=== PATIENT | female | born 1950 | race Caucasian/White ===

== ENCOUNTER 2018-07-19 15:58 | Emergency (ER) | payer MEDICARE, OTHER ==
[~2018-07-19] VITALS: Ht 170.2 cm; Wt 81.7 kg
[~2018-07-19 15:58] MED LIST: HYDACE5 PO; LEVSOD125 PO; OXYACE5T PO; PRAMIPEXOLE D0.25 MG PO; Prozac20 MG PO; SULTRIDS PO; VITB100
[2018-07-19] MEDS ORDERED: Cleocin HCl150 MG PO (18:49)
== END 2018-07-19 19:10 | disposition home or self-care (01) ==
LOC: ER 15:58
DX: S06.9X1A Unspecified intracranial injury with loss of consciousness of 30 minutes or less, initial encounter (principal); S01.01XA Laceration without foreign body of scalp, initial encounter; Z91.09 Other allergy status, other than to drugs and biological substances; Z88.0 Allergy status to penicillin; Z91.048 Other nonmedicinal substance allergy status; Z88.5 Allergy status to narcotic agent; Z88.1 Allergy status to other antibiotic agents; Z79.899 Other long term (current) drug therapy; W22.8XXA Striking against or struck by other objects, initial encounter
CPT/HCPCS: 12004; 70450; 99283-25

== ENCOUNTER → 2018-12-05 | Outpatient (CLI) | payer MEDICARE, OTHER ==
[~2018-12-05] MED LIST changes: +Amlodipine Bes2.5 MG PO; +Cleocin HCl150 MG PO; +ELIQUIS5 MG PO; +FURO40 PO; +SPIR25 PO
== END | disposition home or self-care (01) ==
LOC: LAB SHORT 14:45 → LAB 14:45
DX: R10.13 Epigastric pain (principal)
CPT/HCPCS: 87338

== ENCOUNTER 2019-01-01 19:48 | Inpatient (IN) | payer MEDICARE, OTHER ==
[~2019-01-01] VITALS: Ht 170.2 cm; Wt 85.7 kg
[~2019-01-01 19:48] MED LIST changes: -Amlodipine Bes2.5 MG PO; -ELIQUIS5 MG PO; -FURO40 PO; -SPIR25 PO
[2019-01-01 20:31] LABS: BASOPHILS ABSOLUTE AUTO 0.04 K/mm3 (0.00-0.23); BASOPHILS PERCENT AUTO 0 % (0-2); EOSINOPHILS ABSOLUTE AUTO 0.05 K/mm3 (0.00-0.68); EOSINOPHILS PERCENT AUTO 0 % (0-6); Hematocrit 41.8 % (33.0-51.0); Hemoglobin 13.9 g/dL (11.5-16.0); IMMATURE GRAN ABSOLUTE AUTO 0.06 K/mm3 (0.00-0.10); IMMATURE GRAN PERCENT AUTO 0 % (0-1); LYMPHOCYTES ABSOLUTE AUTO 1.05 K/mm3 (0.84-5.20); LYMPHOCYTES PERCENT AUTO 7 % (21-46); MONOCYTES PERCENT AUTO 7 % (4-13); Mean Corpuscular HGB 30.5 pg (26.0-34.0); Mean Corpuscular HGB Conc 33.3 g/dL (31.5-36.5); Mean Corpuscular Volume 92 fL (80-100); Mean Platelet Volume 9.8 fL (9.1-12.4); NEUTROPHILS PERCENT AUTO 85 % (41-73); Platelet Count 251 K/mm3 (150-400); RDW Standard Deviation 47.8 fL (35.1-46.3); Red Blood Cell Count 4.55 M/mm3 (3.80-5.20)
[2019-01-01] MEDS ORDERED: FURO40 PO (20:38)
[2019-01-01] MEDS ORDERED: SPIR25 PO (20:38)
[2019-01-01] MEDS ORDERED: ELIQUIS5 MG PO (20:38)
[2019-01-01] MEDS ORDERED: Amlodipine Bes2.5 MG PO (20:39)
[2019-01-01 20:49] LABS: Alanine Aminotransfer (ALT/SGP 26 U/L (12-78); Albumin, Blood 3.2 g/dL (3.4-5.0); Albumin/Globulin Ratio 0.7 (0.8-1.8); Alk Phos 114 U/L (50-136); Anion Gap 10 mmol/L (6-16); Aspartate Aminotrans (AST/SGOT 26 U/L (12-37); Bilirubin, Total 0.9 mg/dL (0.1-1.0); Blood Urea Nitrogen 15 mg/dL (8-24); Bun/Creatinine Ratio 15.9 (12.0-20.0); CO2, Blood 23 mmol/L (21-32); Calcium, Blood 8.9 mg/dL (8.5-10.1); Chloride, Blood 104 mmol/L (98-108); Creatinine, Blood 0.95 mg/dL (0.40-1.00); Globulin, Blood 4.6 g/dL (2.2-4.0); Glomerular Filtration Rate >60 (60-); Glucose, Blood 169 mg/dL (70-99); Potassium, Blood 3.2 mmol/L (3.5-5.5); Sodium, Blood 137 mmol/L (136-145); Total Protein, Blood 7.8 g/dL (6.4-8.2)
[2019-01-02 04:55] LABS: BASOPHILS ABSOLUTE AUTO 0.05 K/mm3 (0.00-0.23); BASOPHILS PERCENT AUTO 0 % (0-2); EOSINOPHILS PERCENT AUTO 1 % (0-6); Hematocrit 35.4 % (33.0-51.0); Hemoglobin 11.5 g/dL (11.5-16.0); IMMATURE GRAN ABSOLUTE AUTO 0.06 K/mm3 (0.00-0.10); IMMATURE GRAN PERCENT AUTO 1 % (0-1); LYMPHOCYTES ABSOLUTE AUTO 1.25 K/mm3 (0.84-5.20); LYMPHOCYTES PERCENT AUTO 10 % (21-46); MONOCYTES ABSOLUTE AUTO 1.32 K/mm3 (0.16-1.47); MONOCYTES PERCENT AUTO 11 % (4-13); Mean Corpuscular HGB 30.7 pg (26.0-34.0); Mean Corpuscular HGB Conc 32.5 g/dL (31.5-36.5); Mean Corpuscular Volume 95 fL (80-100); Mean Platelet Volume 10.4 fL (9.1-12.4); NEUTROPHILS PERCENT AUTO 78 % (41-73); Platelet Count 195 K/mm3 (150-400); RDW Coefficient Variation 14.2 % (11.7-14.2); RDW Standard Deviation 49.6 fL (35.1-46.3); Red Blood Cell Count 3.74 M/mm3 (3.80-5.20); White Blood Cell Count 12.58 K/mm3 (4.00-11.30)
[2019-01-02 05:15] LABS: Anion Gap 8 mmol/L (6-16); Blood Urea Nitrogen 10 mg/dL (8-24); Bun/Creatinine Ratio 12.5 (12.0-20.0); CO2, Blood 21 mmol/L (21-32); Calcium, Blood 7.6 mg/dL (8.5-10.1); Chloride, Blood 112 mmol/L (98-108); Glomerular Filtration Rate >60 (60-); Glucose, Blood 111 mg/dL (70-99); Potassium, Blood 3.8 mmol/L (3.5-5.5); Sodium, Blood 141 mmol/L (136-145)
--- NOTE | 2019-01-02 06:38 | NUR ---
SHIFT SUMMARY PT ADMITTED LAST NIGHT FOR ACUTE APPY. SHE DENIES NAUSEA AT THIS TIME. ONLY REQUIRED PAIN MEDICATION ONCE. PT IS A&O, INDEP IN THE ROOM. HER LAST ELOQUIS DOSE WAS 12/31/18 AROUND 1900. SHE HAS BEEN AFEBRILE SINCE ADMIT TO FLOOR. BLOOD CULTURES WERE DRAWN. ABX STARTED. WILL CTM UNTIL PASS TO NEXT SHIFT.
[2019-01-02 07:18] LABS: International Normalized Ratio 1.08; Prothrombin Time Results 11.4 Sec (9.7-11.5)
--- NOTE | 2019-01-02 11:31 | NUR ---
Surgical site prepped with 2% Chlorhexidine cloth wipe. History, Chart, Medications and Allergies reviewed before start of procedure. Lungs clear T/O to Auscultation. Patient confirms NPO status and agrees with scheduled surgery. Pre-Op teaching done. Pt verbalizes understanding. at bedside. Pt has removed her hearing aids and is NOORVIK.
--- NOTE | 2019-01-03 04:43 | NUR ---
SUMMARY: PT IS POD1 LAP APPY. A/O, VSS. PT HAS BEEN RESTING WELL. GIVEN HYDROCODONE FOR PAIN, TOLERATING CLEAR LIQ DIET. SURGICAL SITES WNL, MINIMAL OUT OF THOMAS DRAIN. PT HAS WALKED IN ROOM, IS VOIDING. FLUIDS AT TKO AND ANTIBIOTICS INFUSED. NO ACUTE CONCERNS THIS AM.
[2019-01-03 05:40] LABS: BASOPHILS ABSOLUTE AUTO 0.02 K/mm3 (0.00-0.23); BASOPHILS PERCENT AUTO 0 % (0-2); EOSINOPHILS PERCENT AUTO 0 % (0-6); Hematocrit 32.7 % (33.0-51.0); Hemoglobin 10.4 g/dL (11.5-16.0); IMMATURE GRAN ABSOLUTE AUTO 0.08 K/mm3 (0.00-0.10); IMMATURE GRAN PERCENT AUTO 1 % (0-1); LYMPHOCYTES PERCENT AUTO 6 % (21-46); MONOCYTES ABSOLUTE AUTO 1.07 K/mm3 (0.16-1.47); MONOCYTES PERCENT AUTO 9 % (4-13); Mean Corpuscular HGB 29.9 pg (26.0-34.0); Mean Corpuscular HGB Conc 31.8 g/dL (31.5-36.5); Mean Corpuscular Volume 94 fL (80-100); Mean Platelet Volume 10.5 fL (9.1-12.4); NEUTROPHILS ABSOLUTE AUTO 10.25 K/mm3 (1.96-9.15); NEUTROPHILS PERCENT AUTO 85 % (41-73); Platelet Count 238 K/mm3 (150-400); RDW Coefficient Variation 14.4 % (11.7-14.2); RDW Standard Deviation 49.3 fL (35.1-46.3); Red Blood Cell Count 3.48 M/mm3 (3.80-5.20); White Blood Cell Count 12.12 K/mm3 (4.00-11.30)
[2019-01-03 05:56] LABS: Anion Gap 5 mmol/L (6-16); Blood Urea Nitrogen 8 mg/dL (8-24); Bun/Creatinine Ratio 11.4 (12.0-20.0); CO2, Blood 24 mmol/L (21-32); Chloride, Blood 109 mmol/L (98-108); Glomerular Filtration Rate >60 (60-); Glucose, Blood 138 mg/dL (70-99); Sodium, Blood 138 mmol/L (136-145)
--- NOTE | 2019-01-03 13:09 | NUR ---
PT MEDICATED WITH NORCO 7.5MG AND LOVENOX PER ORDERS. FAMILY AT BEDSIDE.
--- NOTE | 2019-01-03 18:01 | NUR ---
SHIFT SUMMARY PT HAS DONE WELL TODAY BUT THIS AFTERNOON IS C/O ABD BLOATING AND HEARTBURN. DISCUSSED SLOWING DIET AND CONTINUING TO AMBULATING. PT STATES UNDERSTANDING.
[2019-01-04 05:52] LABS: BASOPHILS ABSOLUTE AUTO 0.07 K/mm3 (0.00-0.23); BASOPHILS PERCENT AUTO 1 % (0-2); EOSINOPHILS ABSOLUTE AUTO 0.06 K/mm3 (0.00-0.68); EOSINOPHILS PERCENT AUTO 0 % (0-6); Hematocrit 41.2 % (33.0-51.0); Hemoglobin 13.5 g/dL (11.5-16.0); IMMATURE GRAN ABSOLUTE AUTO 0.22 K/mm3 (0.00-0.10); IMMATURE GRAN PERCENT AUTO 2 % (0-1); LYMPHOCYTES ABSOLUTE AUTO 1.37 K/mm3 (0.84-5.20); LYMPHOCYTES PERCENT AUTO 10 % (21-46); MONOCYTES ABSOLUTE AUTO 1.25 K/mm3 (0.16-1.47); MONOCYTES PERCENT AUTO 9 % (4-13); Mean Corpuscular HGB 30.4 pg (26.0-34.0); Mean Corpuscular HGB Conc 32.8 g/dL (31.5-36.5); Mean Corpuscular Volume 93 fL (80-100); Mean Platelet Volume 9.8 fL (9.1-12.4); NEUTROPHILS ABSOLUTE AUTO 10.78 K/mm3 (1.96-9.15); NEUTROPHILS PERCENT AUTO 78 % (41-73); Platelet Count 400 K/mm3 (150-400); RDW Coefficient Variation 14.4 % (11.7-14.2); RDW Standard Deviation 49.4 fL (35.1-46.3); Red Blood Cell Count 4.44 M/mm3 (3.80-5.20); White Blood Cell Count 13.75 K/mm3 (4.00-11.30)
[2019-01-04 06:07] LABS: Anion Gap 9 mmol/L (6-16); Blood Urea Nitrogen 13 mg/dL (8-24); Bun/Creatinine Ratio 13.8 (12.0-20.0); CO2, Blood 24 mmol/L (21-32); Calcium, Blood 9.2 mg/dL (8.5-10.1); Chloride, Blood 107 mmol/L (98-108); Creatinine, Blood 0.95 mg/dL (0.40-1.00); Glomerular Filtration Rate >60 (60-); Glucose, Blood 130 mg/dL (70-99); Potassium, Blood 3.6 mmol/L (3.5-5.5); Sodium, Blood 140 mmol/L (136-145)
--- NOTE | 2019-01-04 07:41 | NUR ---
SHIFT SUMMARY PT A&O X4 T/O SHIFT. PT CAPITAN GRANDE. POD#2 LAP APPENDECTOMY; LAP SITES CDI. L LOW ABD THOMAS DRAIN EMPTIED SEVERAL TIMES T/O SHIFT, 230ML MEASURED. DRAINAGE CHANGED FROM DAREN TO CLEAR/LIGHT YELLOW. COMPLETE DRESSING TO DRAIN CHANGED D/T SATURATION OR LEAKAGE ON TO BEDDING X3 EVENTS. ABD SOFT, MOD DISTENTION. BT X4, HYPO ACTIVE. PT DENIES NAUSEA BUT REPORTS LITTLE APPETITE. RA; DENIES SOB AND CP. PAIN MANAGED PER EMAR. PT INDEPENDENT. CALL LIGHT IN REACH, PT DEMONSTRATES USE. BED SIDE REPORT GIVEN TO DAY SHIFT RN.
--- NOTE | 2019-01-04 17:58 | NUR ---
SHIFT SUMMARY PT HAS BEEN DISCOURAGED TODAY. CONTINUES TO PASS SMALL AMOUNTS OF GAS BUT NO APPETITTE AND FELT NAUSEATED AFTER TRYING SMALL BITES OF LUNCH. AMBULATED TWICE TODAY BUT TOOK MUCH ENCOURAGEMENT. DICUSSED THOMAS OUTPUT WITH SURGEON.
[2019-01-05 04:24] LABS: Hematocrit 39.2 % (33.0-51.0); Hemoglobin 12.8 g/dL (11.5-16.0); Mean Corpuscular HGB 30.3 pg (26.0-34.0); Mean Corpuscular HGB Conc 32.7 g/dL (31.5-36.5); Mean Corpuscular Volume 93 fL (80-100); NRBC ABSOLUTE 0.02 K/mm3 (0.00-0.02); NRBC Auto 0.1 /100 WBC (0.0-0.2); Platelet Count 419 K/mm3 (150-400); RDW Coefficient Variation 14.4 % (11.7-14.2); RDW Standard Deviation 49.2 fL (35.1-46.3); Red Blood Cell Count 4.23 M/mm3 (3.80-5.20)
[2019-01-05 04:46] LABS: BAND PERCENT MAN 9 % (0-8); BASOPHILS ABSOLUTE MAN 0.13 K/mm3 (0.00-0.23); BASOPHILS PERCENT MAN 1 % (0-2); EOSINOPHILS PERCENT MAN 0 % (0-6); LYMPHOCYTES ABSOLUTE MAN 2.62 K/mm3 (0.84-5.20); LYMPHOCYTES PERCENT MAN 19 % (21-46); MONOCYTES ABSOLUTE MAN 2.07 K/mm3 (0.16-1.47); MONOCYTES PERCENT MAN 15 % (4-13); MYELOCYTE ABSOLUTE MAN 0.27 K/mm3 (0.00-0.00); MYELOCYTE PERCENT MAN 2 % (0-0); NEUTROPHILS ABSOLUTE MAN 8.69 K/mm3 (1.96-9.15); SEG NEUTROPHILS PERCENT MAN 54 % (41-73); TOTAL CELLS COUNTED 100
[2019-01-05 04:47] LABS: Anion Gap 10 mmol/L (6-16); Blood Urea Nitrogen 18 mg/dL (8-24); Bun/Creatinine Ratio 24.1 (12.0-20.0); CO2, Blood 26 mmol/L (21-32); Calcium, Blood 8.5 mg/dL (8.5-10.1); Chloride, Blood 106 mmol/L (98-108); Creatinine, Blood 0.75 mg/dL (0.40-1.00); Glomerular Filtration Rate >60 (60-); Glucose, Blood 126 mg/dL (70-99); Potassium, Blood 3.5 mmol/L (3.5-5.5); Sodium, Blood 142 mmol/L (136-145)
--- NOTE | 2019-01-05 04:50 | NUR ---
POD 3 S/P LAP APPY. LAP SITES CDI. THOMAS CONT TO DRAIN LARGE AMT SEROUS FLUID, REQUIRING SEVERAL FULL DRESSING, GOWN AND MORGAN CHANGES. ABD MOD DISTENDED, PT MED FOR NAUSEA X1, REP PASSING MINIMAL FLATUS. PT DOES C/O HEARTBURN, TUMS GIVEN W/MIN RELIEF. PT DENIED ABD PAIN. PT UP IN ROOM W/SBA, IS USING CALL LIGHT FOR ASSISTANCE, WILL CONT TO MONITOR UNTIL REP GIVEN TO ONCOMING RN.
--- NOTE | 2019-01-05 07:00 | NUR ---
pt sleeping wakes to verbal stimuli pt req med for acid reflux will req protonix also went over with pt her labs pt wanting to sleep longer
--- NOTE | 2019-01-05 11:00 | NUR ---
dr corbett by to see pt
--- NOTE | 2019-01-05 13:56 | NUR ---
pt req tylenol for pain amb in hallway earlier with spouse to help with abd dist and nausea still passing small amts of flatus dressing to fritz changed earlier dr noel by to see pt
--- NOTE | 2019-01-05 16:04 | NUR ---
PT GIVEN A DOSE OF TORADOL FOR PAIN WANTING TO STAY AWAY FROM [facility] PT TO [facility] IN THE [place] PAIN IS 05/31
--- NOTE | 2019-01-05 16:54 | NUR ---
PT AMB IN HALLWAY WITH SPOUSE EMPTIED THOMAS ANTWAN HAD A GLOB OF MUCUS
--- NOTE | 2019-01-05 17:26 | NUR ---
PT STATED PAIN WAS MUCH BETTER / TORADOL IS HELPING
--- NOTE | 2019-01-06 02:14 | NUR ---
HEART RATE: PT AWOKE C/P "MY HEART FEELSI LIKE IT'S RACING" PT REP MILD CHEST PRESSURE, DENIES CHEST PAIN OR SOB. VITALS TAKEN, HR NOTED IRREGULAR, 117-159, AVG 130-140'S. CALL PLACED TO MD, NEW ORDERS RECEIVED.
[2019-01-06 04:37] LABS: Hematocrit 38.3 % (33.0-51.0); Hemoglobin 12.4 g/dL (11.5-16.0); Mean Corpuscular HGB 30.2 pg (26.0-34.0); Mean Corpuscular HGB Conc 32.4 g/dL (31.5-36.5); Mean Corpuscular Volume 93 fL (80-100); Mean Platelet Volume 9.5 fL (9.1-12.4); NRBC ABSOLUTE 0.05 K/mm3 (0.00-0.02); NRBC Auto 0.4 /100 WBC (0.0-0.2); Platelet Count 443 K/mm3 (150-400); RDW Coefficient Variation 14.6 % (11.7-14.2); RDW Standard Deviation 50.2 fL (35.1-46.3); Red Blood Cell Count 4.11 M/mm3 (3.80-5.20); White Blood Cell Count 13.74 K/mm3 (4.00-11.30)
--- NOTE | 2019-01-06 04:43 | NUR ---
HEART RATE: NOTIFIED BY TELE MONITOR THAT PT HR HAS CONVERTED TO SINUS W/CURRENT RATE 55. PT SLEEPING IN BED, RESP E/U.
--- NOTE | 2019-01-06 04:51 | NUR ---
POD 4 S/P LAP APPY. PT HAD EPISODE OF AFIB W/HR REACHING 159, PT DID C/O CHEST PRESSURE, MD NOTIFIED, PT MEDICATED PER ORDERS, HR CONVERTED BACK TO SINUS W/RATE OF 55 PER TELE MONITOR. PT HAD NO C/O N/V, IS PASSING SM AMT FLATUS. NO CHANGE IN ABD DISTENTION. THOMAS OUTPUT SLIGHTLY LESS, IS NOT SATURATING MANY DRESSINGS PREV SHIFT. PT VOIDING HAI URINE, DENIES PAIN W/VOID. PT UP IN ROOM W/SBA, IS USING CALL LIGHT FOR ASSISTANCE, WILL CONT TO MONITOR UNTIL REP GIVEN TO ONCOMING RN.
[2019-01-06 04:59] LABS: Anion Gap 10 mmol/L (6-16); Blood Urea Nitrogen 23 mg/dL (8-24); Bun/Creatinine Ratio 24.8 (12.0-20.0); CO2, Blood 24 mmol/L (21-32); Calcium, Blood 8.3 mg/dL (8.5-10.1); Chloride, Blood 108 mmol/L (98-108); Creatinine, Blood 0.93 mg/dL (0.40-1.00); Glomerular Filtration Rate >60 (60-); Glucose, Blood 103 mg/dL (70-99); Potassium, Blood 3.2 mmol/L (3.5-5.5); Sodium, Blood 142 mmol/L (136-145)
[2019-01-06 05:19] LABS: BAND PERCENT MAN 9 % (0-8); BASOPHILS PERCENT MAN 0 % (0-2); EOSINOPHILS ABSOLUTE MAN 0.27 K/mm3 (0.00-0.68); EOSINOPHILS PERCENT MAN 2 % (0-6); LYMPHOCYTES ABSOLUTE MAN 1.64 K/mm3 (0.84-5.20); LYMPHOCYTES PERCENT MAN 12 % (21-46); MONOCYTES ABSOLUTE MAN 0.82 K/mm3 (0.16-1.47); MONOCYTES PERCENT MAN 6 % (4-13); MYELOCYTE ABSOLUTE MAN 0.41 K/mm3 (0.00-0.00); MYELOCYTE PERCENT MAN 3 % (0-0); NEUTROPHILS ABSOLUTE MAN 10.57 K/mm3 (1.96-9.15); SEG NEUTROPHILS PERCENT MAN 68 % (41-73); TOTAL CELLS COUNTED 100
--- NOTE | 2019-01-06 08:41 | NUR ---
PT OOB TO BATHROOM REPORTED SMALL BM AND SOME FLATUS
--- NOTE | 2019-01-06 10:23 | NUR ---
dr corbett by to see pt
--- NOTE | 2019-01-06 11:57 | NUR ---
PT INTO THE SHOWER PT'S HELPING HER
--- NOTE | 2019-01-06 12:16 | NUR ---
NEW DRESSING PLACED TO THOMAS DRAIN PT OUT OF SHOWER
--- NOTE | 2019-01-06 13:15 | NUR ---
PT AMB IN HALLWAY WITH SPOUSE
--- NOTE | 2019-01-06 14:03 | NUR ---
PT HAD ANOTHER BM STILL LOOSE BUT BROWN EARLIER OK WITH DR CONTRERAS STARTING PT ON CL DIET
--- NOTE | 2019-01-06 18:03 | NUR ---
PT RESTING CL DINNER TRAY ON BEDSIDE TABLE PT WANTING TO WAIT TO EAT AT THIS TIME HAS HAD 3 BM TODAY 2 LOOSE 1 SOILD
--- NOTE | 2019-01-07 04:27 | NUR ---
SHIFT SUMMARY: PT POD #5 LAP APPY. A&0 X4. VS WNL WITHOUT KNOWN EPISODES OF A-FIB. NO C/O CP OR PAIN. DENIES N/V. REPORTS PASSING SOME FLATUS. HAVING SOFT BM'S. THOMAS INTACT AND DRAINING SS FLUID. OOB WITH ONE SBA. RESTING MOST OF SHIFT. NO CONCERNS AT THIS TIME.
[2019-01-07 05:11] LABS: Hematocrit 36.4 % (33.0-51.0); Mean Corpuscular HGB 30.4 pg (26.0-34.0); Mean Corpuscular Volume 92 fL (80-100); Mean Platelet Volume 9.3 fL (9.1-12.4); NRBC ABSOLUTE 0.03 K/mm3 (0.00-0.02); NRBC Auto 0.3 /100 WBC (0.0-0.2); Platelet Count 430 K/mm3 (150-400); RDW Coefficient Variation 14.9 % (11.7-14.2); RDW Standard Deviation 50.4 fL (35.1-46.3); Red Blood Cell Count 3.95 M/mm3 (3.80-5.20); White Blood Cell Count 11.85 K/mm3 (4.00-11.30)
[2019-01-07 05:28] LABS: Anion Gap 11 mmol/L (6-16); Blood Urea Nitrogen 18 mg/dL (8-24); Bun/Creatinine Ratio 23.7 (12.0-20.0); CO2, Blood 23 mmol/L (21-32); Calcium, Blood 8.2 mg/dL (8.5-10.1); Chloride, Blood 108 mmol/L (98-108); Creatinine, Blood 0.76 mg/dL (0.40-1.00); Glomerular Filtration Rate >60 (60-); Glucose, Blood 96 mg/dL (70-99); Magnesium, Blood 1.9 mg/dL (1.6-2.4); Potassium, Blood 3.5 mmol/L (3.5-5.5); Sodium, Blood 142 mmol/L (136-145)
[2019-01-07 06:23] LABS: BAND PERCENT MAN 2 % (0-8); BASOPHILS ABSOLUTE MAN 0.11 K/mm3 (0.00-0.23); BASOPHILS PERCENT MAN 1 % (0-2); EOSINOPHILS ABSOLUTE MAN 0.11 K/mm3 (0.00-0.68); EOSINOPHILS PERCENT MAN 1 % (0-6); LYMPHOCYTES ABSOLUTE MAN 1.18 K/mm3 (0.84-5.20); LYMPHOCYTES PERCENT MAN 10 % (21-46); METAMYELOCYTE ABSOLUTE MAN 0.47 K/mm3 (0.00-0.00); METAMYELOCYTE PERCENT MAN 4 % (0-0); MONOCYTES PERCENT MAN 11 % (4-13); MYELOCYTE ABSOLUTE MAN 0.23 K/mm3 (0.00-0.00); MYELOCYTE PERCENT MAN 2 % (0-0); NEUTROPHILS ABSOLUTE MAN 8.41 K/mm3 (1.96-9.15); SEG NEUTROPHILS PERCENT MAN 69 % (41-73); TOTAL CELLS COUNTED 100
[2019-01-08 04:07] LABS: BASOPHILS ABSOLUTE AUTO 0.11 K/mm3 (0.00-0.23); BASOPHILS PERCENT AUTO 1 % (0-2); EOSINOPHILS ABSOLUTE AUTO 0.27 K/mm3 (0.00-0.68); EOSINOPHILS PERCENT AUTO 2 % (0-6); Hematocrit 35.8 % (33.0-51.0); Hemoglobin 11.9 g/dL (11.5-16.0); IMMATURE GRAN ABSOLUTE AUTO 0.77 K/mm3 (0.00-0.10); IMMATURE GRAN PERCENT AUTO 7 % (0-1); LYMPHOCYTES ABSOLUTE AUTO 1.49 K/mm3 (0.84-5.20); LYMPHOCYTES PERCENT AUTO 13 % (21-46); MONOCYTES ABSOLUTE AUTO 1.55 K/mm3 (0.16-1.47); MONOCYTES PERCENT AUTO 13 % (4-13); Mean Corpuscular HGB 30.3 pg (26.0-34.0); Mean Corpuscular HGB Conc 33.2 g/dL (31.5-36.5); Mean Corpuscular Volume 91 fL (80-100); NEUTROPHILS ABSOLUTE AUTO 7.43 K/mm3 (1.96-9.15); NEUTROPHILS PERCENT AUTO 64 % (41-73); Platelet Count 432 K/mm3 (150-400); RDW Coefficient Variation 14.7 % (11.7-14.2); Red Blood Cell Count 3.93 M/mm3 (3.80-5.20); White Blood Cell Count 11.62 K/mm3 (4.00-11.30)
[2019-01-08 04:33] LABS: Anion Gap 9 mmol/L (6-16); Blood Urea Nitrogen 10 mg/dL (8-24); Bun/Creatinine Ratio 13.8 (12.0-20.0); CO2, Blood 25 mmol/L (21-32); Calcium, Blood 7.8 mg/dL (8.5-10.1); Chloride, Blood 104 mmol/L (98-108); Creatinine, Blood 0.72 mg/dL (0.40-1.00); Glomerular Filtration Rate >60 (60-); Glucose, Blood 99 mg/dL (70-99); Potassium, Blood 3.1 mmol/L (3.5-5.5); Sodium, Blood 138 mmol/L (136-145)
[2019-01-08 04:38] LABS: BAND PERCENT MAN 9 % (0-8); BASOPHILS PERCENT MAN 0 % (0-2); EOSINOPHILS ABSOLUTE MAN 0.11 K/mm3 (0.00-0.68); EOSINOPHILS PERCENT MAN 1 % (0-6); LYMPHOCYTES ABSOLUTE MAN 1.04 K/mm3 (0.84-5.20); LYMPHOCYTES PERCENT MAN 9 % (21-46); METAMYELOCYTE ABSOLUTE MAN 0.11 K/mm3 (0.00-0.00); METAMYELOCYTE PERCENT MAN 1 % (0-0); MONOCYTES ABSOLUTE MAN 1.51 K/mm3 (0.16-1.47); MONOCYTES PERCENT MAN 13 % (4-13); MYELOCYTE ABSOLUTE MAN 0.11 K/mm3 (0.00-0.00); MYELOCYTE PERCENT MAN 1 % (0-0); NEUTROPHILS ABSOLUTE MAN 8.71 K/mm3 (1.96-9.15); SEG NEUTROPHILS PERCENT MAN 66 % (41-73); TOTAL CELLS COUNTED 100
--- NOTE | 2019-01-08 05:05 | NUR ---
SHIFT SUMMARY: NO ACUTE CHANGES THIS SHIFT. GAUZE TO OLD DRAIN SITE CHANGED ONCE. PT C/O OF HEADACHE THIS MORNING; MEDICATED WITH TORADOL PER EMAR. DENIES ANY ABD PAIN. CONTINUES TO PASS GAS AND ANNETET CLR LIQ. VOIDING WELL. PLAN TO ADVANCE DIET LATER TODAY. NO CONCERNS AT THIS TIME.
--- NOTE | 2019-01-08 18:02 | NUR ---
SUMMARY PATIENT AMBULATING IN HALLWAYS THROUGHOUT SHIFT, HAS DENIED NEED FOR PAIN MEDICATION. TOLERATING DIET WITHOUT NAUSEA. PATIENT IS HOPING TO DISCHARGE TOMORROW
--- NOTE | 2019-01-09 04:58 | NUR ---
SHIFT SUMMARY: NO ACUTE CHANGES OVER NIGHT. PT TOLERATING REG DIET, PASSING GAS AND HAVING BM'S. VOIDING WELL AND INDEPENDENT IN RM. ABD CONTINUES TO BE MILDLY DISTENDED AND SOMEWHAT FIRM. NO DRG NOTED ON OLD THOMAS DRAIN SITE. STERI STRIPS CDI. DENIES PAIN T/O SHIFT.
--- NOTE | 2019-01-09 07:25 | NUR ---
pt awake texting on her phone reports min pain no nausea still having bm and flatus feeling good dressing to old drain site cdi pt hoping to go home today
--- NOTE | 2019-01-09 09:00 | NUR ---
dr noel by to see pt ok to discharge home
--- NOTE | 2019-01-09 11:10 | NUR ---
DISCHARGE INSTRUCTIONS REVIEWED WITH PT VERBALIZED NO ACUTE CHANGES PT WAITING FOR HER HE IS COMING AFTER LUNCH NO RX
--- NOTE | 2019-01-09 13:01 | NUR ---
wc escort to car no acute changes
== END 2019-01-09 13:00 | disposition home or self-care (01) | DRG 853 ==
LOC: ER 19:48 → SURS 22:28 → ER 23:08 → SURS 23:08
PROVIDERS: Hospitalist; Physician Assistant; Surgery; ADMIT Hospitalist
PROC: 0DTJ4ZZ Resection of Appendix, Percutaneous Endoscopic Approach (ICD-10-PCS; principal; 2019-01-02 10:45)
DX: A41.9 Sepsis, unspecified organism (principal); K35.32 Acute appendicitis with perforation, localized peritonitis, and gangrene, without abscess; K56.7 Ileus, unspecified; I50.32 Chronic diastolic (congestive) heart failure; I11.0 Hypertensive heart disease with heart failure; I48.0 Paroxysmal atrial fibrillation; G47.30 Sleep apnea, unspecified; E03.9 Hypothyroidism, unspecified; F32.9 Major depressive disorder, single episode, unspecified; E87.6 Hypokalemia; E78.5 Hyperlipidemia, unspecified; K21.9 Gastro-esophageal reflux disease without esophagitis; Z88.5 Allergy status to narcotic agent; Z88.0 Allergy status to penicillin; Z88.8 Allergy status to other drugs, medicaments and biological substances; Z79.899 Other long term (current) drug therapy
CPT/HCPCS: 36415; 74177; 80048; 80053; 83690; 83735; 85025; 85610; 87040; 88304; 93005; 93010; 96361; 96365-59; 96375; 99285-25; C9113; J0295; J0696; J1100; J1650; J1885; J2405; J2710; J2765; J3010; J3480; J7030; J7120; Q9967

== ENCOUNTER 2020-12-15 17:00 | Emergency (ER) | payer MEDICARE, OTHER ==
[~2020-12-15] VITALS: Ht 167.6 cm; Wt 83.9 kg
[~2020-12-15 17:00] MED LIST changes: +Amlodipine Bes2.5 MG PO; +ELIQUIS5 MG PO; +EUTHYROX125 MCG PO; +FURO40 PO; -LEVSOD125 PO; +SPIR25 PO
[2020-12-15 17:22] LABS: BASOPHILS ABSOLUTE AUTO 0.11 K/mm3 (0.00-0.23); BASOPHILS PERCENT AUTO 2 % (0-2); EOSINOPHILS ABSOLUTE AUTO 0.27 K/mm3 (0.00-0.68); EOSINOPHILS PERCENT AUTO 4 % (0-6); Hematocrit 49.8 % (33.0-51.0); Hemoglobin 15.6 g/dL (11.5-16.0); IMMATURE GRAN ABSOLUTE AUTO 0.02 K/mm3 (0.00-0.10); IMMATURE GRAN PERCENT AUTO 0 % (0-1); LYMPHOCYTES ABSOLUTE AUTO 2.61 K/mm3 (0.84-5.20); LYMPHOCYTES PERCENT AUTO 35 % (21-46); MONOCYTES ABSOLUTE AUTO 0.89 K/mm3 (0.16-1.47); MONOCYTES PERCENT AUTO 12 % (4-13); Mean Corpuscular HGB 30.5 pg (26.0-34.0); Mean Corpuscular HGB Conc 31.3 g/dL (31.5-36.5); Mean Corpuscular Volume 97 fL (80-100); Mean Platelet Volume 9.8 fL (9.1-12.4); NEUTROPHILS ABSOLUTE AUTO 3.53 K/mm3 (1.96-9.15); NEUTROPHILS PERCENT AUTO 48 % (41-73); Platelet Count 343 K/mm3 (150-400); RDW Coefficient Variation 14.1 % (11.7-14.2); RDW Standard Deviation 51.2 fL (35.1-46.3); Red Blood Cell Count 5.12 M/mm3 (3.80-5.20); White Blood Cell Count 7.43 K/mm3 (4.00-11.30)
[2020-12-15] MEDS ORDERED: LOSA25 PO (17:55)
[2020-12-15 17:56] LABS: Alanine Aminotransfer (ALT/SGP 23 U/L (12-78); Albumin, Blood 3.7 g/dL (3.4-5.0); Alk Phos 98 U/L (50-136); Anion Gap 6 mmol/L (6-16); Aspartate Aminotrans (AST/SGOT 19 U/L (12-37); Bilirubin, Total 0.5 mg/dL (0.1-1.0); Blood Urea Nitrogen 18 mg/dL (8-24); CO2, Blood 20 mmol/L (21-32); Calcium, Blood 9.2 mg/dL (8.5-10.1); Chloride, Blood 113 mmol/L (98-108); Creatinine, Blood 0.69 mg/dL (0.40-1.00); Globulin, Blood 3.7 g/dL (2.2-4.0); Glomerular Filtration Rate >60 (60-); Glucose, Blood 90 mg/dL (70-99); Potassium, Blood 4.7 mmol/L (3.5-5.5); Sodium, Blood 139 mmol/L (136-145); Total Protein, Blood 7.4 g/dL (6.4-8.2); Troponin I <0.015 ng/mL (0.000-0.040)
[2020-12-15] MEDS ORDERED: VENL75ER PO (17:56)
[2020-12-15] MEDS ORDERED: METO25 PO (17:56)
== END 2020-12-15 21:10 | disposition home or self-care (01) ==
LOC: ER 17:00
PROVIDERS: Physician Assistant
DX: I48.91 Unspecified atrial fibrillation (principal); I11.0 Hypertensive heart disease with heart failure; I50.32 Chronic diastolic (congestive) heart failure; E03.9 Hypothyroidism, unspecified; Z79.01 Long term (current) use of anticoagulants; Z79.899 Other long term (current) drug therapy; Z91.041 Radiographic dye allergy status; Z88.0 Allergy status to penicillin; Z91.09 Other allergy status, other than to drugs and biological substances; Z88.1 Allergy status to other antibiotic agents; Z88.5 Allergy status to narcotic agent
CPT/HCPCS: 36415; 71045; 80053; 84484; 85025; 92960; 93005; 93010; 96374-59; 96376-59; 99152; 99285-25; A9270; J7030

== ENCOUNTER → 2022-03-12 | Outpatient (CLI) | payer MEDICARE, OTHER ==
[~2022-03-12] MED LIST changes: +LOSA25 PO; +METO25 PO; +VENL75ER PO
== END | disposition home or self-care (01) ==
LOC: LAB SHORT 12:11 → PLD 12:11
DX: D22.39 Melanocytic nevi of other parts of face (principal)
CPT/HCPCS: 88305